=== PATIENT | male | born 1935 | race Caucasian/White ===

== ENCOUNTER 2016-04-02 13:56 | Inpatient (IN) | payer OTHER ==
[~2016-04-02] VITALS: Ht 180.3 cm; Wt 90.8 kg
[~2016-04-02 13:56] MED LIST: ALBUTEROL SULF8.5 GM IH; ALLOPURINOL100 MG PO; ASPIR-LOW81 MG PO; CARBIDOPA-LEVO1 EAC7 PO; CARDIZEM CD180 MG PO; DULERA 100 MCG/13 GM IH; DUONEB 2.5-0.5 M3 ML AEROSOL; EUCERIN CREME57 GM TP; FLORINEF ACETA0.1 MG PO; FOLIC ACID1 MG PO; KEFLEX500 MG PO; KEPPRA250 MG PO; LASIX20 MG PO; LIDODERM 5% P1 PATCH TD; MELOXICAM7.5 MG PO; METHOTREXATE2.5 MG PO; MINOCYCLINE HC100 M1 PO; POTASSIUM CHLO20 ME1 PO; PREDNISONE5 MG PO; PROAIR HFA8.5 GM IH; PROTONIX40 MG PO; RESTORIL15 MG PO; SEVERE ALLERGY1 EACH PO; SINEMET 25-1001 EACH PO; SINEMET CR 25-1 EACH PO
[2016-04-02 15:09] LABS: MCH 30.8 PG (29.0-34.0); MCHC 30.8 G/DL (30.0-36.0); MEAN PLAT.VOLUME 10.2 uM^3 (9.0-12.4); PLATELET COUNT 143 K/uL (156-360); RBC DIS.WIDTH-CV 17.3 % (11.8-14.6); RBC DIS.WIDTH-SD 61.2 % (39-53); WHITE BLOOD COUNT 4.6 K/uL (4.1-10.2)
[2016-04-02 15:17] LABS: CHLORIDE 110 mEq/L (99-109); POTASSIUM 4.4 mEq/L (3.7-5.4); SODIUM 143 mEq/L (136-147)
[2016-04-02 15:19] LABS: GLUCOSE 99 mg/dL (70-99)
[2016-04-02 15:20] LABS: ANION GAP 9 MEQ/L (2-14)
[2016-04-02 15:22] LABS: GFR ESTIMATE (CALCULATED) > 59 mL/min/
[2016-04-02 15:23] LABS: UREA NITROGEN (BUN) 23 mg/dL (9-23)
[2016-04-02 15:29] LABS: TROP-I INTERPRETATION NEGATIVE; TROPONIN-I < 0.01 ng/mL (0.0-0.30)
[2016-04-02] MEDS ORDERED: PROAIR HFA8.5 GM IH (15:54)
[2016-04-02] MEDS ORDERED: SINEMET 25-1001 EACH PO ×3 (15:55)
[2016-04-02] MEDS ORDERED: PROTONIX40 MG PO (15:56)
[2016-04-02] MEDS ORDERED: FOLIC ACID1 MG PO (15:57)
[2016-04-02] MEDS ORDERED: LO-DOSE ASPIRIN81 M2 PO (15:57)
[2016-04-02 19:40] VITALS: BP 138/71
[2016-04-03] VITALS (7 sets, daily range): BP systolic 117–156; BP diastolic 56–80
[2016-04-03 00:59] LABS: TROP-I INTERPRETATION NEGATIVE; TROPONIN-I 0.04 ng/mL (0.0-0.30)
[2016-04-03 09:01] LABS: TROP-I INTERPRETATION NEGATIVE; TROPONIN-I 0.01 ng/mL (0.0-0.30)
[2016-04-03 09:15] LABS: ANION GAP 9 MEQ/L (2-14); CHLORIDE 110 MEQ/L (99-109); GFR ESTIMATE (CALCULATED) > 59 mL/min/; GLUCOSE 76 mg/dL (70-99); SAMPLE HEMOLYSIS CHECK 0; SAMPLE ICTERIC CHECK 0; SAMPLE LIPEMIA CHECK 0; SODIUM 144 MEQ/L (136-147); UREA NITROGEN (BUN) 20 mg/dL (9-23)
[2016-04-03 15:31] LABS: HEMATOCRIT 34.3 % (38.0-50.0); MCH 31.5 PG (29.0-34.0); MCHC 31.8 G/DL (30.0-36.0); MCV 99.1 FL (86-99); MEAN PLAT.VOLUME 10.3 uM^3 (9.0-12.4); PLATELET COUNT 131 K/uL (156-360); RBC DIS.WIDTH-CV 17.5 % (11.8-14.6); RBC DIS.WIDTH-SD 63.6 % (39-53); RED BLOOD COUNT 3.46 M/uL (4.00-5.50); WHITE BLOOD COUNT 4.1 K/uL (4.1-10.2)
[2016-04-03 15:49] LABS: EOSINOPHIL (%) 3.7 % (0-5); EOSINOPHIL COUNT 0.2 K/uL (0-0.3); IMMATURE GRANULOCYTE (%) 0.2 % (0.0-0.7); LYMPHOCYTE COUNT 0.8 K/uL (1.0-2.8); MONOCYTE (%) 3.7 % (3-12); MONOCYTE COUNT 0.2 K/uL (0-0.8); NEUTROPHIL (%) 73.7 % (45-76)
[2016-04-04 03:29] VITALS: BP 130/82
[2016-04-04 08:23] VITALS: BP 152/70
[2016-04-04 12:18] VITALS: BP 108/58
[2016-04-04] MEDS ORDERED: CEFTIN500 MG PO (14:23)
== END 2016-04-04 16:14 | disposition home or self-care (01) | DRG 308 ==
LOC: EME 13:56 → 5WEST 16:16 → EDOF 16:16 → 5WEST 19:17
PROVIDERS: Emergency Medicine; Internal Medicine; Physician Assistant
DX: I49.5 Sick sinus syndrome (principal); J18.9 Pneumonia, unspecified organism; G93.40 Encephalopathy, unspecified; I48.0 Paroxysmal atrial fibrillation; I48.92 Unspecified atrial flutter; R29.6 Repeated falls; R55 Syncope and collapse; G20 Parkinson's disease; F03.91 Unspecified dementia, unspecified severity, with behavioral disturbance; J44.9 Chronic obstructive pulmonary disease, unspecified; J32.9 Chronic sinusitis, unspecified; I10 Essential (primary) hypertension; E78.5 Hyperlipidemia, unspecified
CPT/HCPCS: 70450; 71010; 80048; 81003; 84484; 85025; 85027; 87040; 87070; 87086; 87205; 87449; 93005; 94640; 94640 76; 99202; 99281; 99285; G0378; J0456; J0696; J2060; J7050; J7512

== ENCOUNTER 2016-08-04 23:44 | Inpatient (IN) | payer OTHER ==
[~2016-08-04] VITALS: Ht 181.6 cm; Wt 81.1 kg
[~2016-08-04 23:44] MED LIST changes: +CEFTIN500 MG PO; +LO-DOSE ASPIRIN81 M2 PO
[2016-08-05 00:17] LABS: EOSINOPHIL (%) 12.9 % (0-5); EOSINOPHIL COUNT 0.7 K/uL (0-0.3); HEMATOCRIT 33.1 % (38.0-50.0); IMMATURE GRANULOCYTE (%) 0.2 % (0.0-0.7); INSTRUMENT ABS NEUTROPHIL CT 2.4 K/uL; LYMPHOCYTE COUNT 1.6 K/uL (1.0-2.8); MCH 30.9 PG (29.0-34.0); MCHC 30.8 G/DL (30.0-36.0); MCV 100.3 FL (86-99); MONOCYTE COUNT 0.6 K/uL (0-0.8); NEUTROPHIL COUNT 2.4 K/uL (1.8-6.4); PLATELET COUNT 116 K/uL (156-360); RBC DIS.WIDTH-CV 16.5 % (11.8-14.6); RBC DIS.WIDTH-SD 59.9 % (39-53); WHITE BLOOD COUNT 5.3 K/uL (4.1-10.2)
[2016-08-05 00:34] LABS: AMYLASE 71 IU/L (1-118); CHLORIDE 112 mEq/L (99-109); POTASSIUM 4.1 mEq/L (3.7-5.4); SODIUM 144 mEq/L (136-147)
[2016-08-05 00:36] LABS: GLUCOSE 89 mg/dL (70-99)
[2016-08-05 00:37] LABS: ANION GAP 9 MEQ/L (2-14)
[2016-08-05 00:39] LABS: GFR ESTIMATE (CALCULATED) > 59 mL/min/; SERUM ETHYL ALCOHOL < 10 mg/dL
[2016-08-05 00:40] LABS: UREA NITROGEN (BUN) 24 mg/dL (9-23)
[2016-08-05 00:42] LABS: LIPASE 59 U/L (1.0-51.0)
[2016-08-05] MEDS ORDERED: ALBUTEROL2.5 MG/3 M IH (01:41)
[2016-08-05 05:45] VITALS: BP 143/68
[2016-08-05 07:28] VITALS: BP 144/68
[2016-08-05 07:48] LABS: ADD MIUA? NO; BILIRUBIN NEGATIVE; BLOOD NEGATIVE; COLOR YELLOW ((YELLOW)); GLUCOSE (STRIP) NEGATIVE; KETONES 5; LEUKOCYTES NEGATIVE; NITRITE NEGATIVE; PROTEIN (STRIP) NEGATIVE; SPECIFIC GRAVITY 1.021 (1.000-1.030); UCUL ADDED? NO
[2016-08-05 11:45] VITALS: BP 137/74
[2016-08-05 19:15] VITALS: BP 165/78
[2016-08-05 23:30] VITALS: BP 152/67
[2016-08-06] VITALS (17 sets, daily range): BP systolic 93–183; BP diastolic 41–108
[2016-08-06 09:13] LABS: EOSINOPHIL (%) 7.2 % (0-5); EOSINOPHIL COUNT 0.3 K/uL (0-0.3); HEMATOCRIT 30.1 % (38.0-50.0); IMMATURE GRANULOCYTE (%) 0.5 % (0.0-0.7); LYMPHOCYTE COUNT 0.8 K/uL (1.0-2.8); MCH 31.6 PG (29.0-34.0); MCHC 31.2 G/DL (30.0-36.0); MCV 101.3 FL (86-99); MEAN PLAT.VOLUME 10.8 uM^3 (9.0-12.4); MONOCYTE (%) 5.3 % (3-12); MONOCYTE COUNT 0.2 K/uL (0-0.8); NEUTROPHIL (%) 68.6 % (45-76); PLATELET COUNT 110 K/uL (156-360); RBC DIS.WIDTH-CV 16.5 % (11.8-14.6); RBC DIS.WIDTH-SD 61.1 % (39-53); RED BLOOD COUNT 2.97 M/uL (4.00-5.50); WHITE BLOOD COUNT 4.3 K/uL (4.1-10.2)
[2016-08-06 09:29] LABS: ANION GAP 8 MEQ/L (2-14); CHLORIDE 112 MEQ/L (99-109); MAGNESIUM 1.5 mg/dl (1.3-2.7); POTASSIUM 3.8 MEQ/L (3.7-5.4); SAMPLE HEMOLYSIS CHECK 0; SAMPLE ICTERIC CHECK 0; SAMPLE LIPEMIA CHECK 0; SODIUM 144 MEQ/L (136-147)
[2016-08-06 09:34] LABS: GFR ESTIMATE (CALCULATED) > 59 mL/min/; GLUCOSE 76 mg/dL (70-99); UREA NITROGEN (BUN) 21 mg/dL (9-23)
[2016-08-06 10:52] LABS: METH RESISTANT S AUREUS PCR NEGATIVE (NEGATIVE)
[2016-08-06 10:54] LABS: PROBE CHECK PASS; SPECIMEN PROCESSING CONTROL PASS
[2016-08-06 13:09] LABS: CREATINE KINASE 215 IU/L (1-294); TOTAL CK 215 IU/L (1-294)
[2016-08-06 13:12] LABS: TROP-I INTERPRETATION NEGATIVE; TROPONIN-I 0.05 ng/mL (0.0-0.30)
[2016-08-06 13:39] LABS: CK-MB 3.6 ng/mL (0.0-4.9)
[2016-08-06 17:56] LABS: CREATINE KINASE 264 IU/L (1-294); TOTAL CK 264 IU/L (1-294)
[2016-08-06 18:00] LABS: TROP-I INTERPRETATION NEGATIVE; TROPONIN-I 0.04 ng/mL (0.0-0.30)
[2016-08-06 19:18] LABS: CK-MB 4.8 ng/mL (0.0-4.9)
== END 2016-08-07 00:18 | DRG 83 ==
LOC: EME 23:44 → 4WEST 08-05 01:44 → 4EAST 08-05 01:44 → EDOF 08-05 01:44 → 4EAST 08-05 05:29 → 4WEST 08-06 09:17
PROVIDERS: Emergency Medicine; Internal Medicine Nephrology
DX: S06.6X9A Traumatic subarachnoid hemorrhage with loss of consciousness of unspecified duration, initial encounter (principal); I44.2 Atrioventricular block, complete; G20 Parkinson's disease; I45.89 Other specified conduction disorders; I49.5 Sick sinus syndrome; J44.9 Chronic obstructive pulmonary disease, unspecified; G30.9 Alzheimer's disease, unspecified; I48.0 Paroxysmal atrial fibrillation; G40.409 Other generalized epilepsy and epileptic syndromes, not intractable, without status epilepticus; E83.42 Hypomagnesemia; F02.80 Dementia in other diseases classified elsewhere, unspecified severity, without behavioral disturbance, psychotic disturbance, mood disturbance, and anxiety; I10 Essential (primary) hypertension; S01.01XA Laceration without foreign body of scalp, initial encounter; J45.909 Unspecified asthma, uncomplicated; Z91.81 History of falling; Y92.009 Unspecified place in unspecified non-institutional (private) residence as the place of occurrence of the external cause; W18.30XA Fall on same level, unspecified, initial encounter; E78.5 Hyperlipidemia, unspecified; I25.10 Atherosclerotic heart disease of native coronary artery without angina pectoris; I46.9 Cardiac arrest, cause unspecified; K21.9 Gastro-esophageal reflux disease without esophagitis; S01.411A Laceration without foreign body of right cheek and temporomandibular area, initial encounter; Z51.5 Encounter for palliative care; Z66 Do not resuscitate; S01.81XA Laceration without foreign body of other part of head, initial encounter; S06.5X9A Traumatic subdural hemorrhage with loss of consciousness of unspecified duration, initial encounter; M79.641 Pain in right hand; Z87.891 Personal history of nicotine dependence; W19.XXXA Unspecified fall, initial encounter; M25.531 Pain in right wrist; R40.0 Somnolence; R41.82 Altered mental status, unspecified; R45.1 Restlessness and agitation; R47.81 Slurred speech; M47.9 Spondylosis, unspecified
CPT/HCPCS: 70450; 70486; 71010; 72125; 73110; 80048; 81003; 82150; 82550; 82550 91; 82553; 83690; 83735; 84100; 84484; 85025; 86900; 86901; 87641; 93005; 94640; 94640 76; 94760; 94799; 95819; 99202; 99281; 99285; G0480; J1630; J1953; J2060; J2270; J2920; J3475; J7030; J7050; J7512; S0028